=== PATIENT | male | born 1985 | race African-American/Black ===

== ENCOUNTER 2016-05-11 09:09 | Emergency (ER) | payer OTHER ==
[~2016-05-11] VITALS: Ht 177.8 cm; Wt 81.7 kg
[~2016-05-11 09:09] MED LIST: ADVIL200 M2 PO; IBUPROFEN 200200 M1 PO; IBUPROFEN 800800 M1 PO; LEVAQUIN 500 M500 M2 PO; NORCO 5-325 TA1 EACH PO; OXYCODONE HCL30 MG PO; OXYCONTIN; OXYCONTIN10 M1 PO; OXYCONTIN20 M1 PO; PERCOCET 10-321 EACH PO; PERCOCET 5-3251 EACH PO; TYLENOL325 MG PO
[2016-05-11 09:58] LABS: CALCIUM 8.6 mg/dL (8.5-10.1); POTASSIUM 3.6 mmol/L (3.5-5.1)
[2016-05-11 10:00] LABS: HEMATOCRIT 35.6 % (42.0-52.0); HEMOGLOBIN 12.4 gm/dL (14.0-18.0); MCH 27.8 pg (26.0-34.0); MCHC 34.9 % (28.0-37.0); MCV 79.5 fL (80.0-100.0); PLATELET COUNT 197 thou/uL (150-400); RBC 4.47 mil/uL (4.50-6.00); RDW 21.1 % (10.5-14.5); WBC 12.2 thou/uL (4.0-11.0)
[2016-05-11 10:02] LABS: MANUAL DIFF YES
[2016-05-11 10:39] LABS: URINE BILIRUBIN NEGATIVE (Negative); URINE BLOOD NEGATIVE (Negative); URINE COLOR YELLOW; URINE GLUCOSE-RANDOM* NEGATIVE (Negative); URINE KETONES NEGATIVE (Negative); URINE NITRITE NEGATIVE (Negative); URINE PROTEIN (DIPSTICK) NEGATIVE (Negative); URINE UROBILINOGEN 0.2 E.U./dl (0.2-1.0)
[2016-05-11 11:50] LABS: ATYPICAL LYMPHS 6 %; TOTAL CELL COUNT 100
[2016-05-11 11:51] LABS: ANISOCYTOSIS 1+; LARGE PLATELETS FEW; MACROCYTES SLIGHT; POLYCHROMASIA 1+; TARGET CELLS 3+
[2016-05-11] MEDS ORDERED: IBUPROFEN 600600 M1 PO (11:58)
[2016-05-11] MEDS ORDERED: PERCOCET 5-3251 EACH PO (11:58)
[2016-06-08] MEDS ORDERED: IBUPROFEN 600600 M1 PO (15:39)
[2016-06-08] MEDS ORDERED: ZPAK PO (17:06)
[2016-06-08] MEDS ORDERED: LEVAQUIN 750 M750 MG PO (17:16)
[2016-06-13] MEDS ORDERED: OXYCODONE-ACET1 EACH PO (11:08)
[2016-06-13] MEDS ORDERED: OXYCODONE HCL30 MG PO (11:09)
[2016-06-13] MEDS ORDERED: OXYCONTIN30 MG PO (11:09)
[2016-06-14] MEDS ORDERED: PERCOCET 10-321 EACH PO (09:24)
[2016-06-14] MEDS ORDERED: SENOKOT-S1 TA1 PO (09:25)
== END 2016-05-11 12:16 | disposition home or self-care (01) ==
LOC: ER 09:09
PROVIDERS: Emergency Medicine
DX: D57.819 Other sickle-cell disorders with crisis, unspecified (principal); J45.909 Unspecified asthma, uncomplicated; Z90.49 Acquired absence of other specified parts of digestive tract; Z88.0 Allergy status to penicillin; Z88.1 Allergy status to other antibiotic agents

== ENCOUNTER 2016-05-18 19:38 | Emergency (ER) | payer OTHER ==
[~2016-05-18] VITALS: Ht 177.8 cm; Wt 81.7 kg
[~2016-05-18 19:38] MED LIST changes: +IBUPROFEN 600600 M1 PO
[2016-05-18] MEDS ORDERED: FOLIC ACID1 MG PO (20:05)
[2016-05-18 20:31] LABS: HEMOGLOBIN 11.9 gm/dL (14.0-18.0); MCHC 35.5 % (28.0-37.0)
[2016-05-18 20:32] LABS: HEMATOCRIT 33.5 % (42.0-52.0); MCH 28.1 pg (26.0-34.0); MCV 79.1 fL (80.0-100.0); PLATELET COUNT 184 thou/uL (150-400); RBC 4.24 mil/uL (4.50-6.00); RDW 21.5 % (10.5-14.5); WBC 13.5 thou/uL (4.0-11.0)
[2016-05-18 20:35] LABS: MANUAL DIFF YES
[2016-05-18 20:56] LABS: ABSOLUTE NEUTROPHILS 7.2 thou/uL (1.4-8.2); NUCLEATED RBCS 2 /100WBC; TOTAL CELL COUNT 100
[2016-05-18 20:58] LABS: ANISOCYTOSIS 2+; MICROCYTES SLIGHT; POLYCHROMASIA OCCASIONAL
[2016-05-18 20:59] LABS: HYPOCHROMASIA SLIGHT; TARGET CELLS 2+
[2016-06-08] MEDS ORDERED: IBUPROFEN 600600 M1 PO (15:39)
[2016-06-08] MEDS ORDERED: ZPAK PO (17:06)
[2016-06-08] MEDS ORDERED: LEVAQUIN 750 M750 MG PO (17:16)
[2016-06-13] MEDS ORDERED: OXYCODONE-ACET1 EACH PO (11:08)
[2016-06-13] MEDS ORDERED: OXYCONTIN30 MG PO (11:09)
[2016-06-13] MEDS ORDERED: OXYCODONE HCL30 MG PO (11:09)
[2016-06-14] MEDS ORDERED: PERCOCET 10-321 EACH PO (09:24)
[2016-06-14] MEDS ORDERED: SENOKOT-S1 TA1 PO (09:25)
== END 2016-05-18 21:47 | disposition home or self-care (01) ==
LOC: ER 19:38
PROVIDERS: Physician Assistant
DX: D57.00 Hb-SS disease with crisis, unspecified (principal); J45.909 Unspecified asthma, uncomplicated; M25.551 Pain in right hip; Z90.49 Acquired absence of other specified parts of digestive tract; Z88.0 Allergy status to penicillin

== ENCOUNTER 2016-06-05 09:45 | Emergency (ER) | payer OTHER ==
[~2016-06-05] VITALS: Ht 180.3 cm; Wt 81.7 kg
[~2016-06-05 09:45] MED LIST changes: +FOLIC ACID1 MG PO
[2016-06-05 10:59] LABS: HEMATOCRIT 31.8 % (42.0-52.0); HEMOGLOBIN 11.5 gm/dL (14.0-18.0); MCH 28.7 pg (26.0-34.0); MCV 79.6 fL (80.0-100.0); PLATELET COUNT 224 thou/uL (150-400); RDW 20.1 % (10.5-14.5); WBC 13.7 thou/uL (4.0-11.0)
[2016-06-05 11:12] LABS: CALCIUM 8.5 mg/dL (8.5-10.1); CREATININE 0.8 mg/dL (0.6-1.3); POTASSIUM 3.6 mmol/L (3.5-5.1)
[2016-06-05 11:19] LABS: ALBUMIN 4.3 g/dL (3.4-5.0); TOTAL BILIRUBIN 1.2 mg/dL (<0.1-1.0); TOTAL PROTEIN 7.4 g/dL (6.4-8.2)
[2016-06-05 11:22] LABS: MANUAL DIFF YES
[2016-06-05 11:27] LABS: ABSOLUTE NEUTROPHILS 6.7 thou/uL (1.4-8.2); METAMYELOCYTES 4 %; MYELOCYTES 2 %; TOTAL CELL COUNT 100
[2016-06-05 11:28] LABS: ANISOCYTOSIS 2+
[2016-06-05 11:33] LABS: POLYCHROMASIA SLIGHT; TARGET CELLS 1+
[2016-06-05 11:36] LABS: LARGE PLATELETS SEVERAL
[2016-06-05 14:33] LABS: URINE BILIRUBIN NEGATIVE (Negative); URINE BLOOD NEGATIVE (Negative); URINE COLOR YELLOW; URINE GLUCOSE-RANDOM* NEGATIVE (Negative); URINE KETONES NEGATIVE (Negative); URINE LEUKOCYTES-REFLEX NEGATIVE (Negative); URINE PROTEIN (DIPSTICK) NEGATIVE (Negative); URINE SPECIFIC GRAVITY 1.015 (1.003-1.035); URINE UROBILINOGEN 0.2 E.U./dl (0.2-1.0)
[2016-06-08] MEDS ORDERED: IBUPROFEN 600600 M1 PO (15:39)
[2016-06-08] MEDS ORDERED: ZPAK PO (17:06)
[2016-06-08] MEDS ORDERED: LEVAQUIN 750 M750 MG PO (17:16)
[2016-06-13] MEDS ORDERED: OXYCODONE-ACET1 EACH PO (11:08)
[2016-06-13] MEDS ORDERED: OXYCONTIN30 MG PO (11:09)
[2016-06-13] MEDS ORDERED: OXYCODONE HCL30 MG PO (11:09)
[2016-06-14] MEDS ORDERED: PERCOCET 10-321 EACH PO (09:24)
[2016-06-14] MEDS ORDERED: SENOKOT-S1 TA1 PO (09:25)
== END 2016-06-05 12:55 | disposition home or self-care (01) ==
LOC: ER 09:45
PROVIDERS: Emergency Medicine
DX: D57.00 Hb-SS disease with crisis, unspecified (principal); J45.909 Unspecified asthma, uncomplicated; Z90.49 Acquired absence of other specified parts of digestive tract; Z88.0 Allergy status to penicillin; Z88.1 Allergy status to other antibiotic agents

== ENCOUNTER 2016-10-26 22:11 | Emergency (ER) | payer OTHER ==
[~2016-10-26] VITALS: Ht 177.8 cm; Wt 86.2 kg
--- NOTE | ~2016-10-26 | EKG ---
[address] [address] ELECTROCARDIOGRAM REPORT Name: CASTILLO SANCHEZ Room #: [id number] Admission: 10/26/16 Attend Phys: Discharge: 10/27/16 Date of : 81 Report #: [id number] THIS REPORT FOR: //name// [facility] ED Test Date: 2016-10-26 Test Time: 22:32:20 Pat Name: CASTILLO SANCHEZ Department: Room: Gender: [facility] Director: CWEIBERTA : 1985 Requested By: Cassandra Norwood Order Number: [id number] MD: Flako Odonnell Measurements Intervals [place] Rate: 92 P: 41 SC: 143 QRS: 22 QRSD: 83 T: 7 QT: 336 QTc: 416 Interpretive Statements Sinus rhythm Borderline T wave abnormalities Compared to ECG 02/27/2016 16:20:19 No significant change was found Electronically Signed On 10-27-2016 7:48:02 CDT by Flako Odonnell [email or web address] <ELECTRONICALLY SIGNED> By: Flako Odonnell MD, [facility] 10/27/16 0748 D: 06/2231 31 Flako Odonnell MD, FACC /EPI
[~2016-10-26 22:11] MED LIST changes: +LEVAQUIN 750 M750 MG PO; +OXYCODONE-ACET1 EACH PO; +OXYCONTIN30 MG PO; +SENOKOT-S1 TA1 PO; +ZPAK PO
[2016-10-26 22:59] LABS: ABSOLUTE RETIC COUNT 0.1998 10^6/uL; HEMOGLOBIN 11.1 gm/dL (14.0-18.0); MCHC 34.8 g/dL (28.0-37.0); MCV 80.5 fL (80.0-100.0); OBSERVED RETIC COUNT 5.03 % (0.6-2.6); RBC 3.97 mil/uL (4.50-6.00); RDW 21.1 % (10.5-14.5); WBC 13.9 thou/uL (4.0-11.0)
[2016-10-26 23:03] LABS: MANUAL DIFF YES
[2016-10-26 23:10] LABS: ANION GAP 8 mmol/L (7-16); BUN 9 mg/dL (7-18); CALCIUM 9.1 mg/dL (8.5-10.1); CHLORIDE 99 mmol/L (98-107); CO2 28 mmol/L (21-32); CREATININE 0.9 mg/dL (0.7-1.3); GLUCOSE 99 mg/dL (74-106); POTASSIUM 3.9 mmol/L (3.5-5.1); SODIUM 135 mmol/L (136-145)
[2016-10-26 23:18] LABS: TROPONIN-I < 0.04 ng/mL (<0.04-0.07)
[2016-10-26 23:38] LABS: ABSOLUTE NEUTROPHILS 8.2 thou/uL (1.4-8.2); ATYPICAL LYMPHS 1 %; NUCLEATED RBCS 2 /100WBC; TARGET CELLS 1+; TOTAL CELL COUNT 100
[2016-10-26 23:39] LABS: ANISOCYTOSIS 2+; LARGE PLATELETS SEVERAL; MACROCYTES 1+; PLATELET COUNT 244 thou/uL (150-400); POLYCHROMASIA OCCASIONAL
[2016-10-27] MEDS ORDERED: PERCOCET 5-3251 EACH PO (01:27)
== END 2016-10-27 01:34 | disposition home or self-care (01) ==
LOC: ER 22:11
PROVIDERS: Emergency Medicine
DX: D57.00 Hb-SS disease with crisis, unspecified (principal); J45.909 Unspecified asthma, uncomplicated; Z90.49 Acquired absence of other specified parts of digestive tract; Z88.0 Allergy status to penicillin; Z88.1 Allergy status to other antibiotic agents